=== PATIENT | female | born 2000 | race Caucasian/White ===

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

== ENCOUNTER 2023-09-07 22:40 | Outpatient (CLI) | payer MEDICAID, SELFPAY ==
[2023-09-07] VITALS (10 sets, daily range): BP systolic 120–128; BP diastolic 58–64; PULSE 87–108; RESP 14; TEMP 37.4; O2SAT 98–100; BMI 34.3
[2023-09-07 23:46] LABS: Hematocrit 31.1 % (37-47); Hemoglobin 8.9 g/dL (12.0-15.0); Mean Corp Hgb Conc 28.6 g/dL (32-36); Mean Corpuscular Hgb 21.5 pg (27.0-32.0); Mean Corpuscular Volume 75.1 fL (81-99); Mean Platelet Vol. 10.7 fl (6.2-12.0); Platelet Count 171 K/mm3 (150-450); RBC Distribution Width CV 17.8 % (11.6-14.6); RBC Distribution Width SD 47.6 fl (35.1-43.9); Red Blood Count 4.14 M/mm3 (4.2-5.4); White Blood Count 11.2 K/mm3 (4.4-11.0)
[2023-09-08] MEDS: Acetaminophen 500 MG Tablet PO (00:04)
[2023-09-08 00:16] LABS: AST(SGOT) 21 U/L (15-37); Alanine Aminotransfer ALT/SGPT 22 U/L (13-56); Creatinine, Serum 0.46 mg/dL (0.55-1.02); EST Glomerular Filtration Rate 182 mL/min (>60); Est Glom Filt Rate - Afr Amer 220 mL/min (>60); Estimated Creatinine Clearance 218.91 ml/min
[2023-09-08] MEDS: Acetaminophen/Butalbital/Caffe 1 Tablet PO (00:29)
--- NOTE | 2023-09-08 07:57 | OB.TRI.HP_ITS ---
HPI - General HPI Narrative WILLIAN SIMMONS, is a 23 F who presents day 2 following being induced for mild pre-eclampsia with complaints of headaches, low grade fevers. breast feel engorged. headache worsens with standing, significantly improves with laying down. did obtain an epidural during labor. [facility] Medical History (Updated 09/08/23 @ 07:59 by Bee Boyle CNM) ADHD mental illness Allergy/AdvReac Type Severity Reaction Status Date / Time No Known Allergies Allergy Verified 11/02/17 13:47 Family History Mother Endometriosis Ovarian cyst Depression Bipolar 1 disorder Father Cancer Lung Grandmother Cancer Lung Brother Developmental delay Surgical History History of dental surgery Social History (Updated 11/02/17 @ 14:09 by Donya Higgins TECHNICAL SERVICES SPECIALIST, TECHNICAL SERVICES SPECIALIST-C) Smoking Status: Never smoker alcohol intake: never substance use type: does not use what type of physical activity do you participate in: walking frequency: 5-6 times per week duration: 15-30 minutes/day History 1 Elective abortions Hx Para Spontaneous abortions Hx # Term Pregnancies Ectopic pregnancies Hx # Pregnancies Multiple births # of living children Physical Exam Resp normal respiratory effort and no retractions GI non-tender Uterus Palpation: uterus fundus firm Neuro Deep Tendon Reflexes: Rt Patellar (L4): 2+ and Lt Patellar (L4): 2+ Assessment & Plan (1) Spinal headache: COMMENT: tylenol ATC, caffeine as needed. PLAN: Patient presents for triage evaluation secondary to headache. BP normal, PEC labs wlll WNL. safe for d/c home with spinal headache precautions. Assessment and plan: reassuring maternal status patient discharged to home to follow-up with primary AVIATION MEDICINE SPECIALIST. See problem list details for additional plan information. Charges/Coding Procedures Urinary/Genital [id number]: [id number] non-stress test Interp
== END 2023-09-08 00:37 | disposition home or self-care (01) ==
LOC: WPOUT 22:43 → WP 22:44
PROVIDERS: Referring Provider Registered Nurse; Visit Provider Registered Nurse
DX: O99.355 Diseases of the nervous system complicating the puerperium (principal); G44.89 Other headache syndrome
CPT/HCPCS: 36415; 82565; 84450; 84460; 84550; 85027; 99221; G0378